=== PATIENT | female | born 1950 | race Caucasian/White ===

== ENCOUNTER 2023-09-18 19:37 | Inpatient (IN) | payer OTHER, MEDICARE ==
[~2023-09-18] VITALS: Ht 160 cm; Wt 77.1 kg
[2023-09-18 19:55] VITALS: BP_SYST 167; PULSE 148; RESP 20; TEMP 97; O2SAT 95
[2023-09-18] MEDS ORDERED: ASPIRIN 81 MG TAB.CHEW PO ONE (20:15)
[2023-09-18] MEDS ORDERED: LABETALOL HCL 20 MG/4 ML CARTRIDGE IVP ONE (20:15)
[2023-09-18] MEDS ORDERED: NITROGLYCERIN 1 INCH (GM) OINT. TP ONE (20:15)
[2023-09-18 20:38] LABS: BASOPHILS % (AUTO) 0.4 % (0.0-2.0); HEMOGLOBIN 13.1 g/dL (12.0-16.0); LYMPHOCYTES # (AUTO) 0.8 K/uL (1.0-5.5); LYMPHOCYTES % (AUTO) 11.9 % (20.5-51.5); MEAN CORPUSCULAR HEMOGLOBIN 31 pg (27-31); MEAN CORPUSCULAR HGB CONC 33 % (32-36); MEAN CORPUSCULAR VOLUME 93 fL (79.0-98.0); MONOCYTES # (AUTO) 0.2 K/uL (0.0-1.0); MONOCYTES % (AUTO) 3.4 % (1.7-9.3); NEUTROPHILS # (AUTO) 5.5 K/uL (1.8-7.7); NEUTROPHILS % (AUTO) 84.3 % (40.0-70.0); PLATELET COUNT (AUTO) 239 K/uL (130-430); RED BLOOD CELL COUNT(AUTO) 4.29 MIL/uL (4.2-6.2); RED CELL DISTRIBUTION WIDTH 13.3 % (9.0-15.0); WHITE BLOOD COUNT (AUTO) 6.5 K/uL (4.8-10.8)
[2023-09-18 20:39] LABS: ANION GAP 8 (5-15); CALCIUM 9.1 mg/dL (8.4-11.0); CARBON DIOXIDE 26 mmol/L (23-29); CHLORIDE 101 mmol/L (98-107); CREATININE 1.16 mg/dL (0.55-1.30); GLUCOSE 144 mg/dL (74-106); POTASSIUM 3.7 mmol/L (3.5-5.1); SODIUM SERUM 135 mmol/L (136-145); UREA NITROGEN, BLOOD 13 mg/dL (8-21)
[2023-09-18 20:46] LABS: ALANINE AMINOTRANSFERASE 30 U/L (12-78); ALBUMIN 3.6 g/dL (3.4-4.8); ASPARTATE AMINOTRANSFERASE 31 U/L (10-37); TOTAL BILIRUBIN 0.2 mg/dL (0.0-1.0); TOTAL PROTEIN, SERUM 7.3 g/dL (6.4-8.3)
[2023-09-18 20:49] LABS: BLOOD GAS BASE EXCESS -0.7 mmol/L (-3.0-3.0); BLOOD GAS HCO3 20.9 mmol/L (21.0-27.0); BLOOD GAS PH 7.506 (7.350-7.450); BLOOD GAS PO2 90.2 mmHg (75.0-100.0)
[2023-09-18 20:50] LABS: ABG O2 SAT% ESTIMATE 97.6 % (94.0-100.0); ALLEN'S TEST POSITIVE (P)
[2023-09-18] MEDS ORDERED: DIVA125T32 PO (22:08)
[2023-09-18] MEDS ORDERED: HYDR200T38 PO (22:08)
[2023-09-18] MEDS ORDERED: GABA-331 PO (22:08)
[2023-09-18] MEDS ORDERED: VALS1TAB75 PO (22:08)
[2023-09-18] MEDS ORDERED: VORT10TA PO (22:08)
[2023-09-18] MEDS ORDERED: POTASSIUM CHLORIDE 20 MEQ TAB.PRT.SR PO PRN (22:15)
[2023-09-18] MEDS ORDERED: IPRATROPIUM/ALBUTEROL SULFATE 3 ML AMPUL.NEB (DUONEB) INH PRN (22:15)
[2023-09-18] MEDS ORDERED: NITROGLYCERIN 0.4 MG TAB.SUBL SL PRN (22:15)
[2023-09-18] MEDS ORDERED: LORazepam 2 MG/ML VIAL IVP PRN (22:15)
[2023-09-18] MEDS ORDERED: MUPIROCIN 2% TOPICAL OINTMENT 22 GM NS PRN (22:15)
[2023-09-18] MEDS ORDERED: DOCUSATE SODIUM 100 MG CAPSULE PO PRN (22:15)
[2023-09-18] MEDS ORDERED: KETOROLAC TROMETHAMINE 30 MG VIAL IVP ONE (22:15)
[2023-09-18] MEDS ORDERED: MAGNESIUM SULFATE 50 ML IV PRN (22:15)
[2023-09-18] MEDS ORDERED: ZOLPIDEM TARTRATE 5 MG TABLET PO PRN (22:15)
[2023-09-18] MEDS ORDERED: ONDANSETRON HCL 4 MG/2 ML VIAL IVP PRN (22:15)
[2023-09-18] MEDS ORDERED: FUROSEMIDE 20 MG/2 ML VIAL IVP ONE (22:30)
[2023-09-18] MEDS ORDERED: cloNIDine HCL 0.1 MG TABLET PO PRN (22:30)
[2023-09-18 22:58] VITALS: BP_SYST 139; PULSE 80; RESP 18; TEMP 97.5
[2023-09-18] MEDS: METOPROLOL TARTRATE 50 MG TABLET PO SCH (23:48)
[2023-09-19] VITALS (9 sets, daily range): BP systolic 106–139; PULSE 63–80; RESP 16–20; TEMP 97.5–97.9; O2SAT 93–99
[2023-09-19] MEDS: NIFEDIPINE 90 MG TABLET.SA (PROCARDIA XL 90 MG) PO SCH ×2 (06:12→09:00)
[2023-09-19 06:23] LABS: BASOPHILS % (AUTO) 0.2 % (0.0-2.0); EOSINOPHILS % (AUTO) 0.3 % (0.0-4.0); HEMATOCRIT 36.7 % (36-48); HEMOGLOBIN 11.9 g/dL (12.0-16.0); LYMPHOCYTES # (AUTO) 1.6 K/uL (1.0-5.5); LYMPHOCYTES % (AUTO) 18.5 % (20.5-51.5); MEAN CORPUSCULAR HEMOGLOBIN 30 pg (27-31); MEAN CORPUSCULAR HGB CONC 32 % (32-36); MEAN CORPUSCULAR VOLUME 94 fL (79.0-98.0); MONOCYTES # (AUTO) 0.9 K/uL (0.0-1.0); NEUTROPHILS # (AUTO) 6.2 K/uL (1.8-7.7); PLATELET COUNT (AUTO) 224 K/uL (130-430); RED BLOOD CELL COUNT(AUTO) 3.91 MIL/uL (4.2-6.2); RED CELL DISTRIBUTION WIDTH 13.7 % (9.0-15.0)
[2023-09-19 07:05] LABS: BILIRUBIN,URINE NEGATIVE (NEGATIVE); BLOOD, URINE NEGATIVE (NEGATIVE); CLARITY/URINE CLEAR (CLEAR); COLOR,URINE YELLOW (YELLOW); GLUCOSE,URINE NEGATIVE (NEGATIVE); KETONES,URINE NEGATIVE (NEGATIVE); LEUKOCYTE ESTERASE ,URINE NEGATIVE (NEGATIVE); NITRITE, URINE NEGATIVE (NEGATIVE); PH,URINE 5.5 (5.0-8.0); PROTEIN URINE NEGATIVE (NEGATIVE); UROBILINOGEN,URINE 0.2 (0.2-1.0)
[2023-09-19 07:29] LABS: ANION GAP 10 (5-15); CALCIUM 8.6 mg/dL (8.4-11.0); CARBON DIOXIDE 25 mmol/L (23-29); CHLORIDE 101 mmol/L (98-107); CREATININE 1.01 mg/dL (0.55-1.30); GLUCOSE 105 mg/dL (74-106); POTASSIUM 3.3 mmol/L (3.5-5.1); SODIUM SERUM 136 mmol/L (136-145); UREA NITROGEN, BLOOD 19 mg/dL (8-21); VALPROIC ACID 20 ug/mL (50-100)
[2023-09-19 07:33] LABS: WHITE BLOOD COUNT (AUTO) 8.8 K/uL (4.8-10.8)
[2023-09-19 08:06] LABS: THYROID STIMULATING HORMONE 2.21 uIu/mL (0.34-4.82)
[2023-09-19] MEDS ORDERED: VORTIOXETINE HYDROBROMIDE PO SCH (09:00)
[2023-09-19] MEDS ORDERED: HCTZ PO SCH (09:00)
[2023-09-19] MEDS ORDERED: VALSARTAN PO SCH (09:00)
[2023-09-19] MEDS ORDERED: ASPIRIN 81 MG TABLET(ECOTRIN) PO ONE (09:30)
[2023-09-19] MEDS: GABAPENTIN 300 MG CAPSULE PO SCH (09:56)
[2023-09-19] MEDS: HYDROXYCHLOROQUINE SULFATE 200 MG TABLET PO SCH ×2 (09:56→21:28)
[2023-09-19] MEDS: LOSARTAN POTASSIUM 50 MG TABLET (COZAAR) PO SCH (09:57)
[2023-09-19] MEDS: HYDROCHLOROTHIAZIDE 12.5 MG CAPSULE (HCTZ) PO SCH (09:57)
[2023-09-19] MEDS: DIVALPROEX SODIUM 125 MG CAP.(DEPAKOTE SPRINKLE) PO SCH ×2 (09:57→21:25)
[2023-09-19] MEDS: METOPROLOL TARTRATE 50 MG TABLET PO SCH ×2 (09:58→21:26)
[2023-09-19] MEDS: HEPARIN SODIUM,PORCINE 5,000 UNITS/ML VIAL SUBCUT SCH ×2 (10:02→21:41)
[2023-09-19] MEDS: ACETAMINOPHEN 500 MG TABLET PO PRN ×2 (13:06→21:36)
[2023-09-20 04:46] LABS: BASOPHILS # (AUTO) 0.1 K/uL (0.0-0.2); BASOPHILS % (AUTO) 0.9 % (0.0-2.0); EOSINOPHILS # (AUTO) 0.1 K/uL (0.0-0.4); EOSINOPHILS % (AUTO) 1.7 % (0.0-4.0); HEMATOCRIT 40.4 % (36-48); LYMPHOCYTES # (AUTO) 2.8 K/uL (1.0-5.5); LYMPHOCYTES % (AUTO) 34.6 % (20.5-51.5); MEAN CORPUSCULAR HEMOGLOBIN 30 pg (27-31); MEAN CORPUSCULAR HGB CONC 32 % (32-36); MEAN CORPUSCULAR VOLUME 94 fL (79.0-98.0); MONOCYTES # (AUTO) 0.8 K/uL (0.0-1.0); NEUTROPHILS # (AUTO) 4.3 K/uL (1.8-7.7); NEUTROPHILS % (AUTO) 52.8 % (40.0-70.0); PLATELET COUNT (AUTO) 253 K/uL (130-430); RED BLOOD CELL COUNT(AUTO) 4.32 MIL/uL (4.2-6.2); RED CELL DISTRIBUTION WIDTH 13.6 % (9.0-15.0); WHITE BLOOD COUNT (AUTO) 8.1 K/uL (4.8-10.8)
[2023-09-20 05:18] LABS: ANION GAP 8 (5-15); CALCIUM 8.8 mg/dL (8.4-11.0); CARBON DIOXIDE 28 mmol/L (23-29); CHLORIDE 104 mmol/L (98-107); CREATININE 1.06 mg/dL (0.55-1.30); GLUCOSE 92 mg/dL (74-106); POTASSIUM 4.2 mmol/L (3.5-5.1); SODIUM SERUM 140 mmol/L (136-145); UREA NITROGEN, BLOOD 19 mg/dL (8-21)
[2023-09-20 08:00] VITALS: BP_SYST 149; PULSE 67; RESP 15; TEMP 98.1; O2SAT 95
[2023-09-20] MEDS ORDERED: ASPIRIN 81 MG TABLET(ECOTRIN) PO SCH (09:00)
[2023-09-20 09:26] VITALS: O2SAT 95
[2023-09-20] MEDS ORDERED: REGADENOSON 0.4 MG/5 ML SYRINGE IVP ONE (10:00)
[2023-09-20] MEDS: HYDROXYCHLOROQUINE SULFATE 200 MG TABLET PO SCH (11:10)
[2023-09-20] MEDS: GABAPENTIN 300 MG CAPSULE PO SCH (11:11)
[2023-09-20] MEDS: HYDROCHLOROTHIAZIDE 12.5 MG CAPSULE (HCTZ) PO SCH (11:11)
[2023-09-20] MEDS: NIFEDIPINE 90 MG TABLET.SA (PROCARDIA XL 90 MG) PO SCH (11:11)
[2023-09-20] MEDS: LOSARTAN POTASSIUM 50 MG TABLET (COZAAR) PO SCH (11:12)
[2023-09-20] MEDS: DIVALPROEX SODIUM 125 MG CAP.(DEPAKOTE SPRINKLE) PO SCH (11:12)
[2023-09-20] MEDS: METOPROLOL TARTRATE 50 MG TABLET PO SCH (11:13)
[2023-09-20] MEDS: HEPARIN SODIUM,PORCINE 5,000 UNITS/ML VIAL SUBCUT SCH (11:14)
[2023-09-20] MEDS: ACETAMINOPHEN 500 MG TABLET PO PRN (11:16)
[2023-09-20 12:00] VITALS: O2SAT 96
[2023-09-20] MEDS ORDERED: KETOROLAC TROMETHAMINE 15 MG VIAL IVP PRN (12:30)
[2023-09-20 12:50] VITALS: BP_SYST 135; PULSE 68; RESP 16; TEMP 98; O2SAT 98
[2023-09-20] MEDS ORDERED: HYDR12.55 PO (13:03)
[2023-09-20] MEDS ORDERED: LIP10 PO (13:03)
[2023-09-20] MEDS ORDERED: LOSA-415 PO (13:03)
[2023-09-20] MEDS ORDERED: METO50TA7 PO (13:03)
[2023-09-20] MEDS ORDERED: ASPI-1393 PO (13:03)
[2023-09-20 13:09] VITALS: BP_SYST 144; PULSE 82; RESP 16; TEMP 98.4; O2SAT 94
== END 2023-09-20 16:05 | disposition home health service (06) | DRG 202 ==
LOC: SED 19:37 → STU 21:46
PROVIDERS: ADMIT General Practice; ATTEND General Practice
DX: J45.901 Unspecified asthma with (acute) exacerbation (principal); I21.A1 Myocardial infarction type 2; I16.1 Hypertensive emergency; X58.XXXA Exposure to other specified factors, initial encounter; I11.0 Hypertensive heart disease with heart failure; E87.6 Hypokalemia; F39 Unspecified mood [affective] disorder; S93.401A Sprain of unspecified ligament of right ankle, initial encounter; M79.7 Fibromyalgia; I50.9 Heart failure, unspecified; Z88.6 Allergy status to analgesic agent; Z88.5 Allergy status to narcotic agent; Z88.8 Allergy status to other drugs, medicaments and biological substances; Z79.899 Other long term (current) drug therapy; Z87.891 Personal history of nicotine dependence; Z95.0 Presence of cardiac pacemaker; Y93.89 Activity, other specified; Y92.89 Other specified places as the place of occurrence of the external cause; Y99.8 Other external cause status
CPT/HCPCS: 36415; 36600; 71045; 80048; 80053; 80164; 81001; 81003; 82803; 83037; 83735; 83880; 84443; 84484; 85025; 93005; 93017; 93306; 94760; 96374; 96375; 99291; A9500; G0378; J1644; J1885; J1940; J2785